=== PATIENT | male | born 1955 | race Caucasian/White ===

== ENCOUNTER 2021-09-20 21:40 | Emergency (ER) | payer MEDICARE, MEDICAID ==
[~2021-09-20] VITALS: Ht 167.6 cm; Wt 71.0 kg
[~2021-09-20 21:40] MED LIST: CELE200C PO; HYDR-3992 PO
[2021-09-20] MEDS ORDERED: THROAT LOZENGES-BENZOCAINE/MENTH/CETYLPYRD CL LOZENGES MM STA (22:14)
[2021-09-20] MEDS ORDERED: ONDANSETRON 4MG ODT PO ONE (22:15)
[2021-09-20] MEDS ORDERED: FAMOTIDINE 20MG TABLET PO ONE (22:15)
[2021-09-20] MEDS ORDERED: ACETAMINOPHEN 325MG TABLET PO ONE (22:15)
[2021-09-20 22:50] LABS: CHLORIDE 105 mEq/L (98-107)
[2021-09-20 23:02] LABS: BASOPHILS % 0.4 % (0.0-2.0); EOSINOPHILS % 0.3 % (0.0-5.0); HEMATOCRIT. 41.4 % (42.0-52.0); LYMPHOCYTES % 9.1 % (20.0-50.0); MEAN CORPUSCULAR HEMOGLOBIN 31.9 pg (28.0-32.0); MEAN PLATELET VOLUME 9.5 fl (7.4-10.4); MONOCYTES % 13.9 % (2.0-8.0); NEUTROPHILS % 76.3 % (40.0-76.0); PLATELET 218 x1000/uL (130-400); RED CELL DISTRIBUTION WIDTH 12.9 % (11.6-14.6)
[2021-09-21] MEDS ORDERED: ONDA4TAB5 MT (00:27)
[2021-09-21] MEDS ORDERED: BENZ1LOZ60 MT (00:27)
[2021-09-21] MEDS ORDERED: ACET-2708 MT (00:27)
[2021-09-21] MEDS ORDERED: FAMO-135 MT (00:27)
[2021-09-21 00:55] VITALS: BP 148/76
[2021-09-21] MEDS ORDERED: ONDA4TAB11 PO (18:52)
== END 2021-09-21 00:57 | disposition home or self-care (01) ==
LOC: ER 21:40
DX: B34.9 Viral infection, unspecified (principal); R07.0 Pain in throat; R51.9 Headache, unspecified; E78.00 Pure hypercholesterolemia, unspecified; I10 Essential (primary) hypertension; Z79.899 Other long term (current) drug therapy; Z20.822 Contact with and (suspected) exposure to COVID-19
CPT/HCPCS: 36415; 71045; 80053; 83690; 84484; 85025; 87070; 87426; 87430; 93005; 99285; Q0162

== ENCOUNTER 2021-09-21 17:49 | Emergency (ER) | payer MEDICAID, MEDICARE ==
[~2021-09-21] VITALS: Ht 167.6 cm; Wt 68.0 kg
[~2021-09-21 17:49] MED LIST changes: +ACET-2708 MT; +BENZ1LOZ60 MT; +FAMO-135 MT; +ONDA4TAB5 MT
[2021-09-21] MEDS ORDERED: KETOROLAC 30MG/ML VIAL IM ONE (18:15)
[2021-09-21] MEDS ORDERED: ONDANSETRON 4MG ODT PO ONE (18:15)
[2021-09-21] MEDS ORDERED: ONDANSETRON HCL 4MG/2ML INJ IV ONE (18:30)
[2021-09-21] MEDS ORDERED: KETOROLAC 15MG/ML VIAL IV ONE (18:30)
[2021-09-21] MEDS ORDERED: ONDA4TAB11 PO (18:52)
[2021-09-21 19:05] VITALS: BP 146/89
== END 2021-09-21 19:06 | disposition home or self-care (01) ==
LOC: ER 17:49
DX: U07.1 COVID-19 (principal); I10 Essential (primary) hypertension; E78.00 Pure hypercholesterolemia, unspecified
CPT/HCPCS: 93005; 96374; 96375; 99284; J1885; J2405